=== PATIENT | male | born 1995 | race Caucasian/White ===

== ENCOUNTER 2017-04-05 03:31 | Emergency (ER) | payer SELFPAY ==
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
[2017-04-05 03:59] LABS: BILIRUBIN,URINE NEGATIVE (NEGATIVE)
[2017-04-05 03:59] LABS: BASOPHILS # (AUTO) 0.1 10^3/uL (0.0-0.1); BASOPHILS % (AUTO) 0.8 %; EOSINOPHILS # (AUTO) 0.1 10^3/uL (0.0-0.7); EOSINOPHILS % (AUTO) 0.7 %; HCT - HEMATOCRIT 43.7 % (42.0-52.0); HGB - HEMOGLOBIN 14.7 g/dL (14.0-18.0); LYMPHOCYTES # (AUTO) 4.2 10^3/uL (1.5-3.5); LYMPHOCYTES % (AUTO) 31.3 %; MEAN CORPUSCULAR HEMOGLOBIN 30.9 pg (27.0-31.0); MEAN CORPUSCULAR HGB CONC 33.7 g/dL (32.0-36.0); MEAN CORPUSCULAR VOLUME 91.7 fL (80.0-94.0); MEAN PLATELET VOLUME 7.8 fL (7.4-11.4); MONOCYTES # (AUTO) 0.8 10^3/uL (0.0-1.0); MONOCYTES % (AUTO) 6.3 %; NEUTROPHILS # (AUTO) 8.1 10^3/uL (1.5-6.6); NEUTROPHILS % (AUTO) 60.9 %; NUCLEATED RED BLOOD CELLS AUTO 0.1 /100WBC; RED BLOOD COUNT 4.76 10^6/uL (4.70-6.10); RED CELL DISTRIBUTION WIDTH 13.3 % (12.0-15.0); UNCORRECTED WHITE BLOOD COUNT 13.3 x10^3/uL; WHITE BLOOD COUNT 13.3 x10^3/uL (4.8-10.8)
[2017-04-05 04:04] LABS: UA CHARGE (STRIP ONLY) YES; UR CULTURE IF IND NOT INDICATED
[2017-04-05 04:09] LABS: ALBUMIN/GLOBULIN RATIO 1.5 (1.0-2.2); BILIRUBIN,TOTAL 0.2 mg/dL (0.2-1.0); BUN - BLOOD UREA NITROGEN 12 mg/dL (6-20); CALCIUM 9.6 mg/dL (8.5-10.3); CARBON DIOXIDE - CO2 22 mmol/L (21-32); CHLORIDE 110 mmol/L (101-111); CREATININE 0.9 mg/dL (0.6-1.2); GFR - MDRD 108 (>89); GLUCOSE 101 mg/dL (70-100); LIPASE 22 U/L (22-51); POTASSIUM 3.9 mmol/L (3.5-5.0); SALICYLATE < 6.0 mg/dL; SODIUM 146 mmol/L (135-145); TOTAL PROTEIN 8.2 g/dL (6.7-8.2)
[2017-04-05] MEDS ORDERED: NICOTINE 14 MG PATCH TOP ONE (04:37)
[2017-04-05 04:40] LABS: ACETAMINOPHEN < 10 ug/mL (10-30)
[2017-04-05] MEDS ORDERED: LORazepam 2 MG/ML SYRINGE ONE (04:58)
[2017-04-05] MEDS ORDERED: HALOPERIDOL 5 MG/ML VIAL ONE (04:59)
[2017-04-05] MEDS ORDERED: LORazepam 2 MG/ML SYRINGE IVP STA (05:27)
[2017-04-05] MEDS ORDERED: HALOPERIDOL 5 MG/ML VIAL IM STA (05:27)
[2017-04-05] MEDS: NICOTINE 14 MG PATCH TOP STA ×2 (05:36→05:38)
--- NOTE | 2017-04-05 12:59 | ED Physician Documentation ---
ED Addendum - Addendum Addendum: 04/05/17 12:58 Patient rouses but is minimally conversant. He is not able to clearly say if not suicidal. Does have history of depression. I feel he might be at risk of self-harm and would like consultation from /JIM.
[2017-04-05] MEDS ORDERED: diazePAM 5 MG TABLET PO STA (16:07)
[2017-04-05] MEDS ORDERED: diazePAM 5 MG TABLET PO ONE (16:25)
[2017-04-05 20:54] VITALS: BP 138/83
--- NOTE | 2017-04-05 21:27 | ED Physician Documentation ---
ED Addendum - Addendum Addendum: 04/05/17 21:26 Took sign out from Dr[address] Cooper, briefly this is a young man who is depressed, suicidal, initially intoxicated but sober now. He has been cooperative during the shift. Seen by the [facility] and arrangements made to send the [facility] under an involuntary treatment act under the care of Dr. Cooper. (unrelated to our Dr Cooper).
== END 2017-04-05 22:32 ==
LOC: ED 03:31
DX: F32.9 Major depressive disorder, single episode, unspecified (principal); R45.851 Suicidal ideations; J45.909 Unspecified asthma, uncomplicated; F17.200 Nicotine dependence, unspecified, uncomplicated
CPT/HCPCS: 36415; 80053; 80306; 80307; 80320; 80329; 81003; 83690; 84443; 85025; 96372; 96374; 99285; A9270; J2060; 81001; 87086; 99284

== ENCOUNTER 2017-04-05 22:33 | Outpatient (CLI) | payer SELFPAY | END 2017-04-05 22:34 | disposition short-term general hospital (02) | LOC: EMS 22:33 | PROVIDERS: ATTEND Surgery | DX: R45.851 Suicidal ideations (principal) | CPT/HCPCS: A0425; A0428 ==

== ENCOUNTER 2018-11-21 15:52 | Emergency (ER) | payer MEDICAID ==
[2018-11-21 15:59] VITALS: BP 137/81
--- NOTE | 2018-11-21 16:52 | ED Physician Documentation ---
PD HPI SKIN - Stated complaint Stated Complaint: RASH - Chief complaint Chief Complaint: Wound - History obtained from History obtained from: Patient - History of Present Illness Timing - onset: Other (1 week worth of a severely itchy rash especially the right forearm but spreading.) Review of Systems Constitutional: reports: Reviewed and negative Throat: reports: Reviewed and negative Cardiac: reports: Reviewed and negative Respiratory: reports: Reviewed and negative PD PAST MEDICAL HISTORY - Past Medical History Respiratory: Asthma Psych: Depression - Past Surgical History Past Surgical History: No - Present Medications Home Medications: Ambulatory Orders Medication Instructions Recorded Confirmed Permethrin 5% Cream 1 applic TOP ONCE #2 tube 11/21/18 hydrOXYzine pamoate [Hydroxyzine 1 - 2 tab PO Q6H PRN #20 capsule 11/21/18 Pamoate] - Allergies Allergies/Adverse Reactions: Allergies Allergy/AdvReac Type Severity Reaction Status Date / Time No Known Drug Allergies Allergy Verified 11/21/18 15:58 - Social History Does the pt smoke?: Yes Smoking Status: Current every day smoker Does the pt drink ETOH?: No Does the pt have substance abuse?: No - Immunizations Immunizations are current?: Yes - POLST Patient has POLST: No PD ED PE NORMAL - Vitals Vital signs reviewed: Yes - General General: Alert and oriented X 3, No acute distress - HEENT HEENT: Pharynx benign - Derm Derm: Other (He has a rash that is very consistent with scabies especially on the right forearm) - Neuro Neuro: Alert and oriented X 3, Normal speech Results - Vitals Vitals: Vital Signs - 24 hr 11/21/18 15:54 Temperature 36.4 C L Heart Rate 90 Respiratory 18 Rate Blood Pressure 137/81 H O2 Saturation 100 Oxygen O2 Source Room air Departure - Departure Disposition: 01 Home, Self Care Clinical Impression: Scabies Condition: Good Record reviewed to determine appropriate education?: Yes Health Concerns: rash Plan of Treatment: tx for scabies Care Goals: rid scabies Assessment: as above Instructions: ED Scabies Prescriptions: hydrOXYzine pamoate [Hydroxyzine Pamoate] 1 - 2 tab PO Q6H PRN #20 capsule PRN Reason: Itching Permethrin 5% Cream 1 applic TOP ONCE #2 tube Comments: Call your doctor to arrange a follow-up appointment, make the next available appointment. In the interim, return anytime if worse or if new symptoms develop.
== END 2018-11-21 16:58 | disposition home or self-care (01) ==
LOC: ED 15:52
DX: B86 Scabies (principal); F17.200 Nicotine dependence, unspecified, uncomplicated
CPT/HCPCS: 99282; 99283

== ENCOUNTER 2020-11-03 17:25 | Emergency (ER) | payer SELFPAY ==
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
[2020-11-03 19:53] VITALS: BP 130/74
== END 2020-11-03 19:56 | disposition home or self-care (01) ==
LOC: ED 17:25
DX: S09.90XA Unspecified injury of head, initial encounter (principal); W50.0XXA Accidental hit or strike by another person, initial encounter; F17.200 Nicotine dependence, unspecified, uncomplicated
CPT/HCPCS: 99281; 99284